=== PATIENT | female | born 1955 | race Caucasian/White ===

== ENCOUNTER 2019-10-26 11:44 | Day surgery (SDC) | payer MEDICARE, MEDICAID ==
[~2019-10-26] VITALS: Ht 157.5 cm; Wt 69.8 kg
[~2019-10-26 11:44] MED LIST: ALPRAZOLAM1 MG PO; CARAFATE1 GM PO; COZAAR100 MG PO; CYCLOBENZAPRINE10 MG PO; CYMBALTA60 MG PO; HYDROCODON-ACE1 EAC8 PO; MICARDIS HCT 81 EAC1 PO; OMEPRAZOLE40 MG PO; OXYCONTIN20 MG PO
[2019-10-26] MEDS ORDERED: BUPRENORPHINE HC8 MG SL (12:15)
--- NOTE | 2019-10-26 14:33 | NUR ---
10/26/19 1433 Moriah Medley 1405 PT ARRIVED IN PACU SLEEPY WITH NO C/O'S. ABD SOFT. 1415 DR AT BEDSIDE TALKING TO PT. 1430 SITTING UP IN BED SIPPING ON WATER.
--- NOTE | 2019-10-26 20:37 | OR ---
[facility] [address], [place] [address] Signed DATE OF OPERATION: 10/26/2019 SURGEON: Soco Lindsey MD PREOPERATIVE DIAGNOSIS: History of tubular adenoma at 50 cm, 2012. POSTOPERATIVE DIAGNOSES: 1. Small polyp in mid transverse colon (excised with cold snare technique). 2. Diverticular changes of sigmoid. PROCEDURE: Total colonoscopy to cecum with cold snare polypectomy x1. ANESTHESIA: Intravenous sedation, fentanyl 200 mcg, Versed 7 mg. INDICATION: This 64-year-old white woman is a patient of Dr. Nga Seaman. She is here for surveillance colonoscopy having undergone colonoscopy in 2012 showing a tubular adenoma at 50 cm. She is symptom-free regarding the colon currently. She understands the risks of colonoscopy including but not limited to bleeding, infection, and perforation and wished to proceed. FINDINGS: The prep was good. Complete colonoscopy was undertaken of the cecum. She had diverticula of the sigmoid and left colon. There was a small adenomatous-appearing polyp in the mid transverse colon, which was excised with combination of cold snare technique and cold morcellation technique. There were no other findings of concern. She did have some hypertrophied anal papilla. DESCRIPTION OF PROCEDURE: The patient was brought to the endoscopy suite and placed in lateral decubitus position, given intravenous sedation to the point of slurred speech and nystagmus with full cardiopulmonary monitoring. Digital rectal examination was normal. The Olympus video colonoscope was passed in the rectum and manipulated throughout the colon. At approximately the right transverse colon, a small polyp was noted. It was situated with various maneuvers, cold snare polypectomy was undertaken as was some morcellation excision. Specimen was passed for pathology. Scope was ultimately passed to the cecum, which appeared normal. Irrigation was undertaken. The scope was Electronically Signed By: SOCO LINDSEY MD 10/26/19 2037 PATIENT NAME: JON LARIOS OPERATIVE REPORT DATE OF : 55 REPORT #: [id number] PHYSICIAN: SOCO LINDSEY MD PCP: NGA SEAMAN MD REPORT IS CONFIDENTIAL AND NOT TO BE RELEASED WITHOUT AUTHORIZATION [facility] [address], [place] [address] Signed withdrawn from that point and examination throughout showed no sign of abnormality other than the polypectomy site and diverticular change of the sigmoid and left colon. Retroflexed view showed some hypertrophied anal papilla, but no sign of other abnormality. The scope was removed and the patient was taken to recovery room in good condition. CONCLUDING DIAGNOSIS: Polyps x1 and diverticulosis. PLAN: Recommend repeat colonoscopy in 5 years, sooner if clinically indicated. She will return to the ongoing care of Nga Seaman otherwise. MD EYAD Torres/MODL /[id number] cc: Nga Seaman MD Copies: ~ Electronically Signed By: SOCO LINDSEY MD 10/26/19 2037 PATIENT NAME: JON LARIOS OPERATIVE REPORT DATE OF : 55 REPORT #: [id number] PHYSICIAN: SOCO LINDSEY MD PCP: NGA SEAMAN MD REPORT IS CONFIDENTIAL AND NOT TO BE RELEASED WITHOUT AUTHORIZATION
--- NOTE | 2019-10-28 16:53 | PATH ---
[facility] [address], [place] [address] Signed SPECIMEN(S): A HEPATIC FLEXURE POLYPS SPECIMEN SOURCE: A. HEPATIC FLEXURE POLYPS CLINICAL HISTORY: Screening. Postop: Polyp, diverticula. MICROSCOPIC DESCRIPTION: Histologic sections of all submitted blocks are examined by light microscopy. These findings, together with the gross examination, support the pathologic diagnosis. FINAL PATHOLOGIC DIAGNOSIS: Hepatic flexure polyps, biopsy: - Tubular adenoma (two fragments). JVR:[facility]:C2NR GROSS DESCRIPTION: The specimen, labeled "MH, hepatic flexure polyps," is received in formalin and consists of three pink-hall soft tissue fragments that measure 0.1 to 0.2 cm in greatest dimension. The specimen is entirely submitted in cassette (A1). JS (under the direct supervision of a pathologist) The Gross Description was prepared using a voice recognition system. The report was reviewed for accuracy; however, sound-alike word errors, addition and/or deletions may occur. If there is any question about this report, please contact Client Services. PERFORMING LABORATORY: The technical component was performed by [facility], [address] [place] [address] (Technical Account Executive: Mikayla Grajeda MD; CLIA# [id number]). [facility] [address] [place] [address] (Technical Account Executive: Julio Smiley M.D.; CLIA#: [id number]). Diagnostician: Tae Howard MD Pathologist Electronically Signed 10/28/2019 PATIENT NAME: JON LARIOS PATHOLOGY DATE OF : 55 REPORT #: [id number] PHYSICIAN: HYUN PATHOLOGY PCP: STEPHANIE TEIXEIRA MD REPORT IS CONFIDENTIAL AND NOT TO BE RELEASED WITHOUT AUTHORIZATION [address] [address] Signed Copies: ~ PATIENT NAME: JON LARIOS PATHOLOGY DATE OF : 55 REPORT #: [id number] PHYSICIAN: CHUYYTE PATHOLOGY PCP: STEPHANIE TEIXEIRA MD REPORT IS CONFIDENTIAL AND NOT TO BE RELEASED WITHOUT AUTHORIZATION
== END 2019-10-26 14:55 | disposition home or self-care (01) ==
LOC: OPS 11:44 → DS 13:00 → OPS 14:55
PROVIDERS: Surgery
PROC: 0DBL8ZZ Excision of Transverse Colon, Via Natural or Artificial Opening Endoscopic (ICD-10-PCS; principal; 2019-10-26 13:00)
DX: Z12.11 Encounter for screening for malignant neoplasm of colon (principal); D12.3 Benign neoplasm of transverse colon; K57.30 Diverticulosis of large intestine without perforation or abscess without bleeding; E04.2 Nontoxic multinodular goiter; K21.0 Gastro-esophageal reflux disease with esophagitis; I10 Essential (primary) hypertension; G47.30 Sleep apnea, unspecified; I65.29 Occlusion and stenosis of unspecified carotid artery; G89.4 Chronic pain syndrome; Z86.010 Personal history of colon polyps; Z98.890 Other specified postprocedural states; Z79.899 Other long term (current) drug therapy
CPT/HCPCS: 99153; G0500; J2250; J3010; J7121

== ENCOUNTER 2023-05-06 12:14 | Emergency (ER) | payer MEDICARE, MEDICAID ==
[~2023-05-06] VITALS: Ht 157.5 cm; Wt 69.8 kg
[~2023-05-06 12:14] MED LIST changes: +BUPRENORPHINE HC8 MG SL
--- OUTSIDE RECORDS SUMMARY | 2023-05-06 12:18 | XMS ---
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 Chanel has no Care Guidelines for this patient. [place] VISIT COUNT (12 MO.) [facility] [place] TOTAL 3 NOTE: Visits indicate total known visits. ED/C VISIT TRACKING (12 MO.) 05/06/2023 12:16 [facility] [place] TYPE: Emergency COMPLAINT: - RIB CRAMPING/PAIN 01/21/2023 13:39 [facility] TYPE: Emergency DIAGNOSES: - Diarrhea, unspecified - Generalized abdominal pain - Pain, unspecified - Vomiting, unspecified 06/04/2022 11:41 [facility] Анна [facility] TYPE: Emergency DIAGNOSES: - Other headache syndrome - Unspecified abdominal pain - Abdominal Pain - Emesis - vomiting, back pain INPATIENT VISIT TRACKING (12 MO.) No inpatient visits to display in this time frame [email or web address]
[2023-05-06] MEDS ORDERED: AMLODIPINE BESYL5 MG PO (13:47)
[2023-05-06] MEDS ORDERED: DULOXETINE HCL60 MG PO (13:47)
[2023-05-06] MEDS ORDERED: HYDROCHLOROTHIA25 MG PO (13:48)
[2023-05-06] MEDS ORDERED: DULOXETINE HCL30 MG PO (13:48)
[2023-05-06 15:29] VITALS: BP 130/74
== END 2023-05-06 15:30 | disposition home or self-care (01) ==
LOC: ED 12:14
DX: M54.14 Radiculopathy, thoracic region (principal); I10 Essential (primary) hypertension; F17.200 Nicotine dependence, unspecified, uncomplicated; Z79.899 Other long term (current) drug therapy
CPT/HCPCS: 99283